=== PATIENT | male | born 1965 | race Hispanic/Latino ===

== ENCOUNTER 2022-10-06 20:35 | Inpatient (IN) | payer OTHER ==
[~2022-10-06] VITALS: Ht 167.6 cm; Wt 64.4 kg
[2022-10-06] MEDS ORDERED: ONDANSETRON HCL INJ 2MG/ML 2ML 2 MG/ML VIAL IV STA (21:31)
[2022-10-06 21:38] LABS: BASOPHILS % 0.1 % (0.0-1.0); EOSINOPHILS % 0.2 % (0.0-6.0); HEMATOCRIT 31.5 % (38.2-49.6); HEMOGLOBIN 9.4 g/dL (14.0-18.0); LYMPHOCYTES # (AUTO) 1.1 (1.0-3.2); MEAN CORPUSCULAR HEMOGLOBIN 25.5 pg (28-32); MEAN CORPUSCULAR HGB CONC 29.8 g/dL (31-35); MEAN CORPUSCULAR VOLUME 85.4 fL (81-99); MONOCYTES # (AUTO) 0.9 (0.2-0.8); MONOCYTES % 7.4 % (4.4-11.3); NEUTROPHILS # (AUTO) 9.8 (2.1-6.9); NEUTROPHILS % 82.5 % (38.7-80.0); PLATELET COUNT 188 x10e3/uL (140-360); RED BLOOD COUNT 3.69 x10e6/uL (4.3-5.7); RED CELL DISTRIBUTION WIDTH 12.9 % (11.7-14.4)
[2022-10-06] MEDS ORDERED: SODIUM CHLORIDE 0.9% 1000ML 1,000 ML IV ONE (21:45)
[2022-10-06 21:52] LABS: ALBUMIN 1.7 g/dL (3.5-5.0); ALBUMIN/GLOBULIN RATIO 0.4 (0.8-2.0); ANION GAP 14.4 mmol/L (8-16); CALCIUM 7.4 mg/dL (8.4-10.2); CREATININE, SERUM 1.31 mg/dL (0.72-1.25); POTASSIUM 3.4 mmol/L (3.5-5.1)
[2022-10-06 22:55] LABS: CLARITY,URINE HAZY (CLEAR); COLOR,URINE YELLOW (YELLOW); KETONES,URINE TRACE (NEGATIVE); LEUKOCYTE ESTERASE ,URINE SMALL (NEGATIVE); NITRITE,URINE NEGATIVE (NEGATIVE); PROTEIN,URINE DIPSTICK 2+ (NEGATIVE); URINE UROBILINOGEN 1 mg/dL (0.2 - 1)
[2022-10-06 22:57] LABS: WBC,URINE (MAN) 21-50 /HPF (0-5)
[2022-10-06 22:58] LABS: BACTERIA,URINE MODERATE /HPF; EPITHELIAL CELLS,URINE MODERATE /LPF
[2022-10-06] MEDS ORDERED: Vancomycin IV 1 GM in SODIUM CHLORIDE 0.9% 250ML 250 ML IV STA (23:12)
[2022-10-06] MEDS ORDERED: CEFEPIME 2 GM in SODIUM CHLORIDE 0.9% 100 ML IV ONE (23:15)
[2022-10-06] MEDS ORDERED: SODIUM CHLORIDE FLUSH 10 ML SYR INJ PRN (23:45)
[2022-10-07] VITALS (8 sets, daily range): BP systolic 135–153; BP diastolic 80–88
[2022-10-07] MEDS ORDERED: LINEZOLID 600 MG/D5W 300ML 300 ML IV STA (00:20)
[2022-10-07] MEDS ORDERED: METHYLPREDNISOLONE SOD SUCC 125 MG/2ML VIAL IV ONE (00:30)
[2022-10-07] MEDS ORDERED: DIPHENHYDRAMINE HCL INJ 50 MG/ML VIAL IV ONE (00:30)
[2022-10-07] MEDS ORDERED: DIPHENHYDRAMINE HCL INJ 50 MG/ML VIAL ONE (00:39)
[2022-10-07] MEDS ORDERED: ONDANSETRON HCL INJ 2MG/ML 2ML 2 MG/ML VIAL IV PRN (03:45)
[2022-10-07] MEDS ORDERED: ALBUTEROL/IPRATROPIUM 3 ML NEB NEB PRN (03:45)
[2022-10-07] MEDS ORDERED: ACETAMINOPHEN 325 MG TAB PO PRN (03:45)
[2022-10-07] MEDS ORDERED: GUAIFENESIN/DEXTROMETHORPHAN LIQD 5 ML UDC PO PRN (03:45)
[2022-10-07] MEDS ORDERED: MELATONIN 3 MG TAB PO PRN (03:45)
[2022-10-07] MEDS ORDERED: DOCUSATE SODIUM 100 MG CAP PO PRN (03:45)
[2022-10-07] MEDS ORDERED: HYDRALAZINE HCL 20 MG/ML VIAL IV PRN (03:45)
[2022-10-07] MEDS ORDERED: DEXTROSE 50% SYRINGE 50 ML IV PRN (03:45)
[2022-10-07] MEDS ORDERED: MAGNESIUM/ALUMINUM/SIMETHICONE 30 ML UDC PO PRN (03:45)
[2022-10-07] MEDS ORDERED: LACTATED RINGER'S 1,000 ML IV ONE (04:00)
[2022-10-07] MEDS ORDERED: POTASSIUM CHLORIDE 20 MEQ TAB CR PO PRN (04:00)
[2022-10-07 06:20] LABS: BASOPHILS % 0.2 % (0.0-1.0); HEMATOCRIT 32.5 % (38.2-49.6); HEMOGLOBIN 9.9 g/dL (14.0-18.0); LYMPHOCYTES # (AUTO) 0.5 (1.0-3.2); LYMPHOCYTES % 4.1 % (18.0-39.1); MEAN CORPUSCULAR HGB CONC 30.5 g/dL (31-35); MEAN CORPUSCULAR VOLUME 85.3 fL (81-99); MONOCYTES # (AUTO) 0.3 (0.2-0.8); MONOCYTES % 2.6 % (4.4-11.3); NEUTROPHILS # (AUTO) 10.8 (2.1-6.9); NEUTROPHILS % 92.2 % (38.7-80.0); PLATELET COUNT 206 x10e3/uL (140-360); RED BLOOD COUNT 3.81 x10e6/uL (4.3-5.7); RED CELL DISTRIBUTION WIDTH 12.9 % (11.7-14.4)
[2022-10-07] MEDS: LACTATED RINGER'S 1,000 ML INJ SCH ×2 (06:21→18:00)
[2022-10-07 07:04] LABS: ALBUMIN 1.7 g/dL (3.5-5.0); ALBUMIN/GLOBULIN RATIO 0.4 (0.8-2.0); CALCIUM 7.1 mg/dL (8.4-10.2); CREATININE, SERUM 1.19 mg/dL (0.72-1.25)
[2022-10-07] MEDS ORDERED: INSULIN REGULAR, HUMAN 100 UNIT/1 ML SQ ONE (07:15)
[2022-10-07] MEDS: INSULIN REGULAR, HUMAN 100 UNIT/1 ML SQ SCH ×4 (08:14→21:23)
[2022-10-07 09:45] LABS: HIV 1&2 AB SCREEN NON-REACTIVE (NONREACTIVE)
[2022-10-07] MEDS: MULTIVITAMINS/MINERALS TAB PO SCH (10:00)
[2022-10-07 10:38] LABS: LYMPHOCYTES % (MANUAL) 5 % (19-48); MONOCYTES % (MANUAL) 1 % (3.4-9.0); NEUTROPHILS % (MANUAL) 94 % (40-74); PLATELET ESTIMATE ADEQUATE; PLATELET MORPHOLOGY COMMENT NORMAL; RBC MORPHOLOGY COMMENT NORMAL
[2022-10-07] MEDS: LINEZOLID 600 MG/D5W 300ML 300 ML IV SCH (14:45)
[2022-10-07] MEDS: ENOXAPARIN SOD INJ 40 MG/0.4 ML SYR SC SCH (17:16)
[2022-10-07] MEDS ORDERED: INSULIN GLARGINE 100 UNITS/ML VIAL SQ SCH (21:00)
[2022-10-07] MEDS: INSULIN GLARGINE 100 UNITS/ML VIAL SQ SCH (21:23)
[2022-10-08] VITALS (8 sets, daily range): BP systolic 102–156; BP diastolic 60–90
[2022-10-08 01:51] LABS: BODY FLUID APPEARANCE CLOUDY; BODY FLUID COLOR RED; BODY FLUID TYPE PLEURAL; WBC,BODY FLUID 1779 cells/uL
[2022-10-08 01:52] LABS: RBC,BODY FLUID 177000 cells/uL
[2022-10-08] MEDS: LINEZOLID 600 MG/D5W 300ML 300 ML IV SCH ×2 (01:58→13:02)
[2022-10-08 02:14] LABS: MONO/MACROPHG,BODY FLUID 2 %
[2022-10-08 02:15] LABS: LYMPHOCYTES,BODY FLUID 30 %; NEUTROPHILS,BODY FLUID 65 %; OTHER CELLS,BODY FLUID 3 %
[2022-10-08] MEDS: LACTATED RINGER'S 1,000 ML INJ SCH ×2 (05:44→18:17)
[2022-10-08 07:02] LABS: BASOPHILS % 0.3 % (0.0-1.0); EOSINOPHILS % 0.1 % (0.0-6.0); HEMATOCRIT 28.4 % (38.2-49.6); HEMOGLOBIN 9.3 g/dL (14.0-18.0); LYMPHOCYTES # (AUTO) 1.3 (1.0-3.2); LYMPHOCYTES % 11.8 % (18.0-39.1); MEAN CORPUSCULAR HEMOGLOBIN 25.9 pg (28-32); MEAN CORPUSCULAR HGB CONC 32.7 g/dL (31-35); MEAN CORPUSCULAR VOLUME 79.1 fL (81-99); MONOCYTES # (AUTO) 0.6 (0.2-0.8); MONOCYTES % 5.5 % (4.4-11.3); NEUTROPHILS # (AUTO) 8.9 (2.1-6.9); NEUTROPHILS % 81.4 % (38.7-80.0); PLATELET COUNT 251 x10e3/uL (140-360); RED BLOOD COUNT 3.59 x10e6/uL (4.3-5.7); RED CELL DISTRIBUTION WIDTH 12.9 % (11.7-14.4)
[2022-10-08 07:29] LABS: CHOL/HDL RATIO 9.7 (3.9-4.7); CREATININE, SERUM 0.77 mg/dL (0.72-1.25)
[2022-10-08] MEDS: INSULIN REGULAR, HUMAN 100 UNIT/1 ML SQ SCH ×4 (08:00→20:50)
[2022-10-08] MEDS: MULTIVITAMINS/MINERALS TAB PO SCH (08:58)
[2022-10-08] MEDS ORDERED: IOPAMIDOL 370 MG/ML 100 ML INFUS..BTL INJ ONE (12:02)
[2022-10-08] MEDS: ENOXAPARIN SOD INJ 40 MG/0.4 ML SYR SC SCH (16:57)
[2022-10-08] MEDS: INSULIN GLARGINE 100 UNITS/ML VIAL SQ SCH (20:50)
[2022-10-09] VITALS (7 sets, daily range): BP systolic 111–150; BP diastolic 65–84
[2022-10-09] MEDS: LINEZOLID 600 MG/D5W 300ML 300 ML IV SCH ×2 (02:07→13:37)
[2022-10-09 05:58] LABS: BASOPHILS % 0.2 % (0.0-1.0); EOSINOPHILS % 0.2 % (0.0-6.0); HEMATOCRIT 27.9 % (38.2-49.6); HEMOGLOBIN 8.3 g/dL (14.0-18.0); LYMPHOCYTES # (AUTO) 1.7 (1.0-3.2); LYMPHOCYTES % 8.8 % (18.0-39.1); MEAN CORPUSCULAR HEMOGLOBIN 25.7 pg (28-32); MEAN CORPUSCULAR HGB CONC 29.7 g/dL (31-35); MEAN CORPUSCULAR VOLUME 86.4 fL (81-99); MONOCYTES # (AUTO) 0.8 (0.2-0.8); MONOCYTES % 4.2 % (4.4-11.3); NEUTROPHILS # (AUTO) 16.6 (2.1-6.9); NEUTROPHILS % 85.6 % (38.7-80.0); PLATELET COUNT 235 x10e3/uL (140-360); RED BLOOD COUNT 3.23 x10e6/uL (4.3-5.7); RED CELL DISTRIBUTION WIDTH 13.2 % (11.7-14.4)
[2022-10-09] MEDS: LACTATED RINGER'S 1,000 ML INJ SCH (06:07)
[2022-10-09 06:24] LABS: ALBUMIN 1.6 g/dL (3.5-5.0); ALBUMIN/GLOBULIN RATIO 0.4 (0.8-2.0); ANION GAP 12.9 mmol/L (8-16); CALCIUM 7.5 mg/dL (8.4-10.2); CREATININE, SERUM 0.99 mg/dL (0.72-1.25); POTASSIUM 3.9 mmol/L (3.5-5.1)
[2022-10-09 08:13] LABS: LYMPHOCYTES % (MANUAL) 6 % (19-48); MONOCYTES % (MANUAL) 3 % (3.4-9.0); NEUTROPHILS % (MANUAL) 91 % (40-74); PLATELET ESTIMATE ADEQUATE
[2022-10-09 08:14] LABS: PLATELET MORPHOLOGY COMMENT NORMAL; RBC MORPHOLOGY COMMENT NORMAL
[2022-10-09] MEDS: MULTIVITAMINS/MINERALS TAB PO SCH (08:46)
[2022-10-09] MEDS: INSULIN REGULAR, HUMAN 100 UNIT/1 ML SQ SCH ×4 (08:51→20:34)
[2022-10-09] MEDS: ENOXAPARIN SOD INJ 40 MG/0.4 ML SYR SC SCH (17:08)
[2022-10-09] MEDS: INSULIN GLARGINE 100 UNITS/ML VIAL SQ SCH (20:35)
[2022-10-10] VITALS (7 sets, daily range): BP systolic 132–159; BP diastolic 77–88
[2022-10-10] MEDS: LINEZOLID 600 MG/D5W 300ML 300 ML IV SCH (01:24)
[2022-10-10 07:01] LABS: BASOPHILS % 0.3 % (0.0-1.0); EOSINOPHILS % 0.3 % (0.0-6.0); HEMATOCRIT 27.5 % (38.2-49.6); HEMOGLOBIN 8.9 g/dL (14.0-18.0); LYMPHOCYTES # (AUTO) 1.2 (1.0-3.2); LYMPHOCYTES % 9.8 % (18.0-39.1); MEAN CORPUSCULAR HEMOGLOBIN 25.6 pg (28-32); MEAN CORPUSCULAR HGB CONC 32.4 g/dL (31-35); MEAN CORPUSCULAR VOLUME 79.3 fL (81-99); MONOCYTES # (AUTO) 0.5 (0.2-0.8); MONOCYTES % 4.3 % (4.4-11.3); NEUTROPHILS # (AUTO) 9.9 (2.1-6.9); NEUTROPHILS % 83.8 % (38.7-80.0); PLATELET COUNT 271 x10e3/uL (140-360); RED BLOOD COUNT 3.47 x10e6/uL (4.3-5.7); RED CELL DISTRIBUTION WIDTH 13.3 % (11.7-14.4)
[2022-10-10 07:43] LABS: ALBUMIN 1.8 g/dL (3.5-5.0); ALBUMIN/GLOBULIN RATIO 0.4 (0.8-2.0); CALCIUM 7.8 mg/dL (8.4-10.2); CREATININE, SERUM 0.81 mg/dL (0.72-1.25)
[2022-10-10] MEDS: INSULIN REGULAR, HUMAN 100 UNIT/1 ML SQ SCH ×4 (08:09→20:55)
[2022-10-10] MEDS: MULTIVITAMINS/MINERALS TAB PO SCH (08:10)
[2022-10-10] MEDS ORDERED: ONDANSETRON HCL 4 MG ORAL DISINTEGRATING TAB PO PRN (09:00)
[2022-10-10] MEDS: ENOXAPARIN SOD INJ 40 MG/0.4 ML SYR SC SCH (17:16)
[2022-10-10] MEDS: INSULIN GLARGINE 100 UNITS/ML VIAL SQ SCH (21:00)
[2022-10-11] VITALS (8 sets, daily range): BP systolic 133–152; BP diastolic 80–87
[2022-10-11] MEDS: INSULIN REGULAR, HUMAN 100 UNIT/1 ML SQ SCH ×4 (08:26→20:29)
[2022-10-11] MEDS: MULTIVITAMINS/MINERALS TAB PO SCH (08:30)
[2022-10-11] MEDS: CEFTRIAXONE 2 GM in SODIUM CHLORIDE 0.9% 100 ML IV SCH (08:31)
[2022-10-11] MEDS: ENOXAPARIN SOD INJ 40 MG/0.4 ML SYR SC SCH (16:54)
[2022-10-11] MEDS: INSULIN GLARGINE 100 UNITS/ML VIAL SQ SCH (20:30)
[2022-10-12] VITALS (8 sets, daily range): BP systolic 132–147; BP diastolic 76–82
[2022-10-12 06:46] LABS: BASOPHILS # (AUTO) 0.1 (0.0-0.1); BASOPHILS % 0.6 % (0.0-1.0); EOSINOPHILS % 0.4 % (0.0-6.0); HEMATOCRIT 30.4 % (38.2-49.6); HEMOGLOBIN 9.8 g/dL (14.0-18.0); LYMPHOCYTES # (AUTO) 1.2 (1.0-3.2); LYMPHOCYTES % 14.8 % (18.0-39.1); MEAN CORPUSCULAR HEMOGLOBIN 26.1 pg (28-32); MEAN CORPUSCULAR HGB CONC 32.2 g/dL (31-35); MEAN CORPUSCULAR VOLUME 80.9 fL (81-99); MONOCYTES # (AUTO) 0.6 (0.2-0.8); MONOCYTES % 7.6 % (4.4-11.3); NEUTROPHILS # (AUTO) 6.1 (2.1-6.9); PLATELET COUNT 304 x10e3/uL (140-360); RED BLOOD COUNT 3.76 x10e6/uL (4.3-5.7); RED CELL DISTRIBUTION WIDTH 13.6 % (11.7-14.4)
[2022-10-12 07:18] LABS: ALBUMIN/GLOBULIN RATIO 0.4 (0.8-2.0); ANION GAP 13.4 mmol/L (8-16); CALCIUM 8.3 mg/dL (8.4-10.2); CREATININE, SERUM 0.97 mg/dL (0.72-1.25); POTASSIUM 4.4 mmol/L (3.5-5.1)
[2022-10-12] MEDS: MULTIVITAMINS/MINERALS TAB PO SCH (10:06)
[2022-10-12] MEDS: CEFTRIAXONE 2 GM in SODIUM CHLORIDE 0.9% 100 ML IV SCH (10:07)
[2022-10-12] MEDS: INSULIN REGULAR, HUMAN 100 UNIT/1 ML SQ SCH ×4 (10:28→21:11)
[2022-10-12] MEDS: ENOXAPARIN SOD INJ 40 MG/0.4 ML SYR SC SCH (17:09)
[2022-10-12] MEDS: INSULIN GLARGINE 100 UNITS/ML VIAL SQ SCH (21:12)
[2022-10-13 00:44] VITALS: BP 145/84
[2022-10-13 04:09] VITALS: BP 138/79
[2022-10-13 08:17] VITALS: BP 124/77
[2022-10-13] MEDS: MULTIVITAMINS/MINERALS TAB PO SCH (08:23)
[2022-10-13] MEDS: CEFTRIAXONE 2 GM in SODIUM CHLORIDE 0.9% 100 ML IV SCH (08:23)
[2022-10-13 08:30] VITALS: BP 124/77
[2022-10-13] MEDS: INSULIN REGULAR, HUMAN 100 UNIT/1 ML SQ SCH (08:30)
[2022-10-13] MEDS ORDERED: AUGMENTIN 500-1 EACH PO (12:00)
[2022-10-13] MEDS ORDERED: aug (12:00)
[2022-10-13] MEDS ORDERED: FENOFIBRATE160 MG PO (12:07)
[2022-10-13] MEDS ORDERED: DICLOFENAC35 MG PO (12:07)
[2022-10-13] MEDS ORDERED: CYCLOBENZAPRINE10 MG PO (12:07)
[2022-10-13] MEDS ORDERED: ketorolac PO (12:07)
[2022-10-13] MEDS ORDERED: METFORMIN HCL500 MG PO (12:07)
[2022-10-13] MEDS ORDERED: GLIPIZIDE5 MG PO (12:28)
[2022-10-13] MEDS ORDERED: PROVENTIL HFA6.7 GM INH (12:29)
[2022-10-13 12:37] VITALS: BP 142/81
== END 2022-10-13 14:52 | disposition home or self-care (01) | DRG 871 ==
LOC: ER 20:45 → ERHOLD 23:45 → MED/SURG3 10-07 02:49
PROVIDERS: ADMIT Internal Medicine; ATTEND Internal Medicine
PROC: 0W9B3ZZ Drainage of Left Pleural Cavity, Percutaneous Approach (ICD-10-PCS; principal; 2022-10-08)
DX: A40.1 Sepsis due to streptococcus, group B (principal); J15.4 Pneumonia due to other streptococci; J90 Pleural effusion, not elsewhere classified; N13.30 Unspecified hydronephrosis; N17.9 Acute kidney failure, unspecified; N39.0 Urinary tract infection, site not specified; E87.1 Hypo-osmolality and hyponatremia; E11.621 Type 2 diabetes mellitus with foot ulcer; L97.509 Non-pressure chronic ulcer of other part of unspecified foot with unspecified severity; E78.5 Hyperlipidemia, unspecified; E11.22 Type 2 diabetes mellitus with diabetic chronic kidney disease; N18.2 Chronic kidney disease, stage 2 (mild); R81 Glycosuria; R80.9 Proteinuria, unspecified; E87.6 Hypokalemia; E83.51 Hypocalcemia; D64.9 Anemia, unspecified; Z20.822 Contact with and (suspected) exposure to COVID-19; Z20.1 Contact with and (suspected) exposure to tuberculosis
CPT/HCPCS: 36415; 70450; 71045; 71046; 71260; 74177; 80048; 80053; 80061; 81001; 82945; 82948; 83036; 83605; 83615; 83690; 84157; 84311; 85025; 86140; 87040; 87070; 87071; 87086; 87116; 87205; 87206; 87390; 89051; 93306; 93926; 94799; 99252; 99284; G0433; G0435; J0692; J0696; J1200; J1650; J1815; J1817; J2020; J2405; J2930; J3370; J7030; J7050; J7121; Q9967